=== PATIENT | female | born 1975 | race Caucasian/White ===

== ENCOUNTER 2021-05-01 12:18 | Day surgery (SDC) | payer OTHER, SELFPAY ==
--- NOTE | 2021-04-25 12:28 | PCM.HP.BLA ---
History and Physical Date of Admission: 05/01/21 HPI: The patient is a 45 year old female presenting for pre-operative visit. She is scheduled for hysteroscopy with endometrial ablation, for dysmenorrhea and menorrhagia on 05/01/2021. Procedure discussed along with risks, benefits and complications. Other alternatives discussed for management. Consent form signed? Yes. ? ? PAST MEDICAL HISTORY PAST MEDICAL HISTORY Diagnosis Date ? NEGATIVE MEDICAL HISTORY ? ? ? PAST SURGICAL HISTORY PAST SURGICAL HISTORY Procedure Laterality Date ? DELIVERY ONLY ? 09/11/1998 ? TUBAL LIGATION HX Bilateral 09/20/2000 ? -DELIV & POST CARE ? 09/20/2000 ? ? ? CURRENT MEDICATIONS Current Outpatient Medications Medication Sig Dispense Refill ? norethindrone (AYGESTIN) 5 mg tablet Take 1 tablet by mouth twice daily. 60 tablet 1 ? No current facility-administered medications for this visit. ? ? ALLERGIES: Patient has no known allergies. ? PERSONAL HISTORY: SOCIAL HISTORY Social History ? Tobacco Use ? Smoking status: Current Every Day Smoker ? Smokeless tobacco: Never Used Substance Use Topics ? Alcohol use: Yes ? ? Comment: occasionally ? Drug use: No ? FAMILY HISTORY: FAMILY HISTORY FAMILY HISTORY Problem Relation Age of Onset ? other (renal failure) Father ? ? Hypertension Maternal Grandfather ? ? Diabetes Paternal Grandmother ? ? ? REVIEW OF SYMPTOMS: GENERAL: denies fevers or chills ENDOCRINOLOGY: has not been on steroids Cardiology : denies palpitations or chest pain Respiratory: denies SOB or cough Hematology: denies history of prolonged bleeding or easy bruising or VTE Allergy: Denies history of personal or family history of allergy to anesthesia ? PHYSICAL EXAMINATION: ? VITALS: Last menstrual period 02/12/2021. ? GENERAL: The patient is well nourished, well hydrated in no acute distress. , The patient is oriented to time, place, and person. NECK: Supple. No lynphadenopathy, normal thyroid, no thyromegaly. LUNGS: Clear to auscultation bilaterally. no wheezes, rhonchi or rales HEART: Regular rate and rhythm, Normal heart sounds and No murmurs or gallops ? IMPRESSION: menorrhagia, dysmenorrhea ? PLAN: The risks/benefits/alternatives and personal involved for the planned hysteroscopy with endometrial ablation were reviewed with the patient. Her questions were answered to her satisfaction and she desires to proceed. Consent was signed. I reviewed with her postop instructions and expectations. ? ? I have reviewed and updated past medical and surgical history, medications and allergies This H&P was completed in my office on 04/24/21 Assessment & Plan Assessment/Plan (1) Menorrhagia: (2) Dysmenorrhea:
[2021-05-01] VITALS (8 sets, daily range): BP systolic 121–147; BP diastolic 62–91; PULSE 59–72; RESP 16–60; TEMP 36–37; O2SAT 97–100; BMI 43.4
[2021-05-01] MEDS: Acetaminophen 500 MG Tablet 1000 MG PO (13:03)
[2021-05-01] MEDS: Lactated Ringers 1,000 ML 100 ML IV (13:03)
[2021-05-01] MEDS: Celecoxib 200 MG Capsule 400 MG PO (13:03)
[2021-05-01 13:16] LABS: Internal QC Validated? YES +Cl - CLEAR BKGD; Pregnancy, Urine Negative Negative
--- NOTE | 2021-05-01 13:55 | EMB_PTH ---
PATIENT: CHARLEE HARRELL LOC: [facility] – [place] U#:[id number] AGE/SX: 45/F ROOM: RE05/01/[address]: Dr. Claudia Mitchell MD : 1975 BED: DIS: 05/01/2021 SPEC #: [id number] RECD: 05/01/21 15:30 STATUS: REY KRISTIE #: [id number] HARSH: 05/01/21 13:[address]: Claudia Mitchell DEPT: SURGICAL PATHOLOGY RECD BY: Marcelina King ENTERED: 05/02/21 12:00 SP TYPE: ENDOM BX/C MUSHTAQ DR: No Primary Care Phys Tissues: Endometrium, NOS Procedures: Surgery Specimen Level IV HEADER OPERATION: Hysteroscopy, D & C, endometrial ablation PRE-OP DIAGNOSIS: Menorrhagia, dysmenorrhea TISSUE SUBMITTED: Endometrial curettings MICROSCOPIC DIAGNOSIS Endometrium, curettings: Secretory endometrium. Benign stromal hyperplasia suggestive of exogenous hormonal effect. Rare strips of benign squamous mucosa. AM:olga lidia 05/05/2021 MICROSCOPIC DESCRIPTION Slides are reviewed. GROSS DESCRIPTION Received in fixative is one container labeled with the patient's name and designated endometrial curettings. The specimen consists of multiple fragments of hemorrhagic mucoid tissue mixed with quintero-pink polypoid tissue that in aggregate measure 5 x 3 x 0.3 cm. Multiple fragments of quintero polypoid tissue are also noted measuring in aggregate 2 x 2 x 0.3 cm. The entire specimen is submitted in three cassettes. Cassette 3 contains the polypoid tissue. / TU:olga lidia 05/02/21 TC:5 CPT: 28262
--- NOTE | 2021-05-01 13:55 | PCM.DC ---
Discharge Instructions Diet Discharge Diet: No restrictions Activity May resume sexual activity in: 2 weeks Lifting Restrictions: none Dressing / Incision Call your doctor if your incision/area has: Sudden Increased Bleeding and Foul Smelling Discharge Call your doctor if you observe: Fever of 101 or Higher and Using more than 1 pad per hour (for 2 hrs in a row) Follow Up Care Please Follow Up With: Claudia Mitchell MD When: 2-4 weeks or as needed. Call [phone] to make an appointment or with any concerns. Test Results: Test results from this visit will be discussed in further detail at your follow-up appointment, if applicable. Discharge Plan Admission Primary Reason for Your Visit: Endometrial ablation Attending Provider: Claudia Mitchell Primary Care Provider: Care Physician,Amaris Primary Discharge Orders/Prescriptions Prescriptions: No Action multivitamin Tablet 1 tab PO DAILY RF: 0 norethindrone acetate 5 mg tablet 5 mg PO BID RF: 0 turmeric root-sofia root ext 150-25 mg Tablet,Chewable 1 tab PO DAILY RF: 0 Elderberry Zinc Vit C 90-15 mg Lozenge 1 lucrecia PO DAILY RF: 0 Referrals / Follow Up: Care Physician,No Primary [Primary Care Provider] - Disposition Disposition (needs filled in before D/C Order can be placed): Home, Self Care
[2021-05-01] MEDS: Lidocaine 1% /Epi 1:100 (20ml) 20 ML Vial (14:04)
--- NOTE | 2021-05-01 14:19 | PCM.OPRPT ---
Problems Associated Problem List Diagnoses (1) Dysmenorrhea: (2) Menorrhagia: Report of Operation Date of Procedure: 05/01/21 Pre-Operative Diagnosis: menorrhagia, dysmenorrhea Post-Operative Diagnosis: same Surgery/Procedure Performed:: Hysteroscopy D&C with endometrial ablation Description of Surgical Findings:: lush endometrium with polypoid appearing lesion on the anterior lower uterine segment, normal cervix and vagina Surgeon: Claudia Mitchell perfume and toilet water maker: None Type of Anesthesia: MAC/Supplemental/Local Anesthesiologist: Kyree Moore Special Medications: none Specimen's removed: endometrial curettings Drains: none Estimated Blood Loss (mL): 10 Fluids Replaced: 500 Description of Procedure: The patient was taken to the OR where she was prepped and draped in dorsal lithotomy position. The weighted speculum was placed in the vagina and the anterior lip of the cervix was grasped with a single-tooth tenaculum. A paracervical block was administered with 1% lidocaine with 1-100,000 epinephrine solution. The cervix was dilated serially with Hegar dilators. The 5mm hysteroscope was placed into the uterine cavity and the above findings were noted. Bilateral tubal ostia were identified. The uterus sounded to 9 cm and the cervical length was 4 cm. The endometrial cavity length was 5 cm. The hysteroscope was removed. A gentle sharp curettage was done of the uterine cavity. The specimen was handed off and sent to pathology. The Fedeirca device was set to 5 cm. The instrument was then seated into the endometrial cavity and the indicator was in the green. The cervical seal balloon was inflated and the uterine integrity test was passed. The ablation procedure was initiated and completed without interruption. During the ablation procedure gentle traction was held on the tenaculum and the Federica device was held up against the uterine fundus. When the ablation procedure was completed the Federica was removed. The tenaculum was removed and the tenaculum site was noted to be hemostatic. All sponge and needle counts were correct. A vaginal sweep was performed by me. The patient was awakened and taken to the recovery room in stable condition. Hysteroscopic ins: 200cc normal saline Hysteroscopic outs:100cc Grafts/Implants Used: non Procedure Start Time: 14:04 Procedure Stop Time: 14:07 Complications none Admit VTE Documentation VTE Present on Admission: No VTE Mechan Device Prophylaxis: SCD's VTE Pharm Prophylaxis ordered?: No Reason prophylaxis not ordered:: Procedure Not Indicated
== END 2021-05-01 15:24 | disposition home or self-care (01) ==
LOC: SDC 12:19 → AC 12:23
PROVIDERS: Referring Provider Obstetrics & Gynecology; Visit Provider Obstetrics & Gynecology
PROC: 0U5B8ZZ Destruction of Endometrium, Via Natural or Artificial Opening Endoscopic (ICD-10-PCS; CPT 58558; principal; 2021-05-01 13:40)
DX: N92.0 Excessive and frequent menstruation with regular cycle (principal); N94.6 Dysmenorrhea, unspecified; F17.200 Nicotine dependence, unspecified, uncomplicated
CPT/HCPCS: 00952; 58563; 81025; 87426; 88305; C9803; J7120; J2405

== ENCOUNTER 2023-09-24 10:15 | Emergency (ER) | payer OTHER, SELFPAY ==
[2023-09-24 10:18] VITALS: BP 186/92; PULSE 114; RESP 22; TEMP 36.7; O2SAT 100; BMI 41.1
[2023-09-24 10:57] LABS: Absolute Lymphocyte Count 1.56 X10^3/uL (0.83-4.51); Absolute Neutrophil Count 10.5 X10^3/uL (2.0-7.7); Basophil# 0.03 X10^3/uL; Basophil% 0.2 % (0-1); Eosinophil# 0.02 X10^3/uL; Eosinophils% 0.2 % (0-5); Hemoglobin 14.1 g/dL (12.0-15.0); Lymphocyte # 1.56 X10^3/ul (0.83-4.51); Lymphocyte % 12.3 % (19-41); Mean Corp Hgb Conc 34.4 g/dL (32-36); Mean Corpuscular Hgb 32.1 pg (27.0-32.0); Mean Corpuscular Volume 93.4 fL (81-99); Mean Platelet Vol. 9.5 fl (6.2-12.0); Monocyte# 0.55 X10^3/uL; Monocyte% 4.3 % (0-10); NRBC Flagged by Analyzer 0 % (0-5); Neutrophil # 10.47 X10^3/uL (2.7-7.7); Neutrophil % 82.6 % (47-70); Platelet Count 345 K/mm3 (150-450); RBC Distribution Width CV 11.8 % (11.6-14.6); RBC Distribution Width SD 40.3 fl (35.1-43.9); Red Blood Count 4.39 M/mm3 (4.2-5.4); White Blood Count 12.7 K/mm3 (4.4-11.0)
[2023-09-24 11:08] LABS: Anion Gap 6 (5-15); BUN 10 mg/dL (7-18); Calcium,Total 9.5 mg/dL (8.5-10.1); Chloride 110 mmol/L (98-107); Creatinine, Serum 0.71 mg/dL (0.55-1.02); EST Glomerular Filtration Rate 93 mL/min (>60); Est Glom Filt Rate - Afr Amer 112 mL/min (>60); Estimated Creatinine Clearance 108.43 ml/min; Glucose 113 mg/dL (74-106); Sodium Level 139 mmol/L (136-145)
[2023-09-24 11:12] LABS: Internal QC Validated? YES +Cl - CLEAR BKGD; Pregnancy, Serum, hCG Quali. NEGATIVE Negative
--- NOTE | 2023-09-24 11:14 | EDS_ITS ---
HPI <ALFREDO Dubose - Last Filed: 09/24/23 14:47> History of Present Illness Chief Complaint: Suicidal Narrative Narrative: 48-year-old female has had increasing depression and suicidal thoughts. She has not been on medication or seen a psychiatrist in years. She currently has a rope in her garage with plan to use it and hang herself. Today she reached out to a coworker for help who brought her in for evaluation. She takes no medications. PFSH <ALFREDO Dubose - Last Filed: 09/24/23 14:47> PFS Medical History Alcohol use Dysmenorrhea Menorrhagia Smoker Home Medications NK 09/24/23 [History Last Taken Unknown] Allergy/AdvReac Type Severity Reaction Status Date / Time No Known Allergies Allergy Verified 09/24/23 10:16 Surgical History (Updated 04/25/21 @ 10:15 by Lashell Mcgee) History of History of foot surgery History of tubal ligation Social History Smoking Status: Current every day smoker tobacco type: cigarettes ROS <ALFREDO Dubose - Last Filed: 09/24/23 14:47> ROS ED ROS Narrative Constitutional: Negative for fever, chills, malaise. CVS: Negative for chest pain. Respiratory: Negative for shortness of breath. GI: Negative for abdominal pain, nausea, vomiting. EXAM <ALFREDO Dubose - Last Filed: 09/24/23 14:47> Physical Exam Narrative Exam Narrative: CONST: Patient sitting in no acute distress. NECK: Normal inspection. RESP: No respiratory distress, CTAB. CVS: Regular rate and rhythm, no murmur, no gallop. SKIN: Color normal, no rash, warm, dry, intact. EXTREMITIES: Normal appearance, no pedal edema. NEURO: Oriented x4. PSYCH: Normal affect. Const Vital Signs: 09/24/23 10:18 09/24/23 18:29 09/24/23 21:06 Temperature 98.1 F Temperature Source Temporal Pulse Rate 114 H 88 62 Respiratory Rate 22 H 16 16 Blood Pressure 186/92 H 135/74 H 136/89 H Blood Pressure Mean 123 94 104 Pulse Ox 100 99 96 Oxygen Delivery Method Room Air Room Air Room Air <Dr. Eric Williamson DO - Last Filed: 09/24/23 22:16> Physical Exam Const Vital Signs: 09/24/23 10:18 09/24/23 18:29 09/24/23 21:06 Temperature 98.1 F Temperature Source Temporal Pulse Rate 114 H 88 62 Respiratory Rate 22 H 16 16 Blood Pressure 186/92 H 135/74 H 136/89 H Blood Pressure Mean 123 94 104 Pulse Ox 100 99 96 Oxygen Delivery Method Room Air Room Air Room Air [facility] <ALFREDO Dubose - Last Filed: 09/24/23 14:47> [facility] Narrative Medical decision making narrative: Patient has depression and suicidal ideation with a plan to hang herself and reached out to a coworker for help and is here for evaluation. She is calm and pleasant during my exam. Occasionally tearful. Blood work and urine was ordered for medical clearance and social work consult placed. Labs show white count of 12.7, otherwise unremarkable. This is nonspecific. UA negative for infection. Urine tox positive for cannabinoids. Alcohol negative. Patient is medically cleared and pink slipped. Construction Rep is in agreement she needs inpatient mental health evaluation. Lab Data Attestation: I reviewed the patient's lab results. Labs: Laboratory Results - last 24 hr 09/24/23 09/24/23 10:45 10:46 WBC 12.7 H RBC 4.39 Hgb 14.1 Hct 41.0 MCV 93.4 MCH 32.1 H MCHC 34.4 RDW Std Deviation 40.3 RDW Coeff of Estiven 11.8 Plt Count 345 MPV 9.5 Immature Gran % (Auto) 0.400 Neut % (Auto) 82.6 H Lymph % (Auto) 12.3 L Stafford % (Auto) 4.3 Eos % (Auto) 0.2 Baso % (Auto) 0.2 Absolute Neuts (auto) 10.5 H Absolute Lymphs (auto) 1.56 Nucleated RBC % 0 Sodium 139 Potassium 4.0 Chloride 110 H Carbon Dioxide 23.0 Anion Gap 6 BUN 10 Creatinine 0.71 Estim Creat Clear Calc 108.43 Est GFR (MDRD) Af Amer 112 Est GFR (MDRD) Non-Af 93 BUN/Creatinine Ratio 14.0 Glucose 113 H Calcium 9.5 Serum , Qual NEGATIVE Urine Color Yellow Urine Clarity Clear Urine pH 6.5 Ur Specific [place] 1.010 Urine Protein Negative Urine Glucose (UA) Normal Urine Ketones Negative Urine Occult Blood 25 H Urine Nitrite Negative Urine Bilirubin Negative Urine Urobilinogen Normal Ur Leukocyte Esterase Negative Urine RBC 0-5 SEEN Urine WBC 0 SEEN Ur Squamous Epith Cells 0-5 SEEN Urine Bacteria 0 SEEN Urine Mucus 0 SEEN Urine Test Cancelled Urine Opiates Screen NEGATIVE Urine Methadone Screen NEGATIVE Ur Barbiturates Screen NEGATIVE Ur Phencyclidine Scrn NEGATIVE Ur Amphetamines Screen NEGATIVE MDMA (Ecstasy) Screen NEGATIVE U Benzodiazepines Scrn NEGATIVE Urine Cocaine Screen NEGATIVE U Cannabinoids Screen POSITIVE H Ur Drug Screen Comment Ethyl Alcohol < 3.0 <Dr. Eric Williamson, DO - Last Filed: 09/24/23 22:16> [facility] Lab Data Labs: Laboratory Results - last 24 hr 09/24/23 09/24/23 10:45 10:46 WBC 12.7 H RBC 4.39 Hgb 14.1 Hct 41.0 MCV 93.4 MCH 32.1 H MCHC 34.4 RDW Std Deviation 40.3 RDW Coeff of Estiven 11.8 Plt Count 345 MPV 9.5 Immature Gran % (Auto) 0.400 Neut % (Auto) 82.6 H Lymph % (Auto) 12.3 L Stafford % (Auto) 4.3 Eos % (Auto) 0.2 Baso % (Auto) 0.2 Absolute Neuts (auto) 10.5 H Absolute Lymphs (auto) 1.56 Nucleated RBC % 0 Sodium 139 Potassium 4.0 Chloride 110 H Carbon Dioxide 23.0 Anion Gap 6 BUN 10 Creatinine 0.71 Estim Creat Clear Calc 108.43 Est GFR (MDRD) Af Amer 112 Est GFR (MDRD) Non-Af 93 BUN/Creatinine Ratio 14.0 Glucose 113 H Calcium 9.5 Serum , Qual NEGATIVE Urine Color Yellow Urine Clarity Clear Urine pH 6.5 Ur Specific [place] 1.010 Urine Protein Negative Urine Glucose (UA) Normal Urine Ketones Negative Urine Occult Blood 25 H Urine Nitrite Negative Urine Bilirubin Negative Urine Urobilinogen Normal Ur Leukocyte Esterase Negative Urine RBC 0-5 SEEN Urine WBC 0 SEEN Ur Squamous Epith Cells 0-5 SEEN Urine Bacteria 0 SEEN Urine Mucus 0 SEEN Urine Test Cancelled Urine Opiates Screen NEGATIVE Urine Methadone Screen NEGATIVE Ur Barbiturates Screen NEGATIVE Ur Phencyclidine Scrn NEGATIVE Ur Amphetamines Screen NEGATIVE MDMA (Ecstasy) Screen NEGATIVE U Benzodiazepines Scrn NEGATIVE Urine Cocaine Screen NEGATIVE U Cannabinoids Screen POSITIVE H Ur Drug Screen Comment Ethyl Alcohol < 3.0 EKG Initial EKG: Attestation: I personally reviewed and interpreted this EKG as follows: Interpretation: Sinus Rhythm (61) and No Acute Injury Pattern Comments: EKG was obtained. On my independent interpretation, it showed a normal sinus rhythm with a rate of 61. DE interval, QRS interval, and QTc intervals were all normal. [place] was normal. There are no acute ST or T wave changes. Prior EKG tracings: not available for review Prior: No Prior Treatment and Re-Evaluation :: I have personally performed a face to face assessment of the patient and have reviewed the SHOLA Note. I performed a substantive portion of the visit including all aspects of the following. My estevez findings include: History: Patient presents with depression and suicidal ideation that has been getting progressively worse over the past several months. Patient states that she has had thoughts of hanging herself. Patient states the thoughts of harming herself or getting worse. Patient does not currently see a psychiatrist or counselor. Patient states she wants help with her depression and anxiety. Exam: Vital signs are stable except for an elevated blood pressure of 186/92. Patient is afebrile. Patient is in no acute distress. Oral mucosa is pink and moist. Neck is supple. Trachea is midline. There is no JVD. Heart was regular rate and rhythm. Lungs are clear and equal bilaterally. Abdomen is soft. Bowel sounds are normal. There is no tenderness. Cranial nerves II through XII are intact. There are no focal motor or sensory deficits noted. Patient does have a depressed mood and flat affect. Patient admits to some suicidal thoughts. Medical Decision Making: Medical screening labs will be obtained. CBC will be obtained to assess for leukocytosis and anemia. Basic metabolic profile will be obtained to assess for electrolyte abnormality and renal function. Serum hCG will be obtained to assess for . Urinalysis will be obtained to assess for urinary tract infection and hematuria. Urine tox screen will be obtained to assess for substance abuse. Serum alcohol level will be obtained to assess for alcohol intoxication. CBC was reviewed. There is a slight leukocytosis of 12.7. The remainder is within normal limits. Basic metabolic profile was reviewed and was within normal limits. Serum hCG was reviewed and was negative. Urine tox screen was reviewed and was positive for cannabinoids. Serum alcohol level was reviewed and was normal. Case will be discussed with the social media marketer for likely placement. Patient understood and was agreeable with the plan. All questions were answered. [place] slip was filled out. social worker health services is attempting to place patient in a psychiatric facility. Patient was accepted to [facility]. Patient will be transferred there. Transfer forms were filled out. Discharge Plan Triage Chief Complaint: Suicidal ED Midlevel Provider: Leatha Barker ED Provider: Eric Williamson Dx/Rx/DC Orders Clinical Impression: Depression with suicidal ideation Prescriptions: No Action NK Primary Care Provider: Care Physician,No Primary Referrals: Care Physician,No Primary [Primary Care Provider] - Disposition Disposition: Psychiatric Hospital or Unit Discharge Location: [facility]
[2023-09-24 11:15] LABS: Alcohol, Blood (Medical)-Serum < 3.0 mg/dL
[2023-09-24 11:17] LABS: Amphetamine Urine VISTA NEGATIVE (<1000 ng/mL); Barbiturate Urine VISTA NEGATIVE (< 200 ng/mL); Benzodiazepine Urine VISTA NEGATIVE (< 200 ng/mL); Cocaine Urine VISTA NEGATIVE (< 300 ng/mL); Ecstacy Urine VISTA NEGATIVE (< 500 ng/mL); Methadone Urine VISTA NEGATIVE (< 300 ng/mL); PCP Urine VISTA NEGATIVE (< 25 ng/mL); THC Urine VISTA POSITIVE (< 50 ng/mL); Vista UDS pH Range 6
[2023-09-24 11:49] LABS: Bacteria 0 SEEN /hpf (None Seen); Mucous, Urine 0 SEEN /hpf (<or=2+); White Blood Cells 0 SEEN /hpf (0-5)
[2023-09-24 12:10] LABS: Glucose, Dipstick Normal (Normal); Ketone-Dipstick Negative (Negative); Leukocyte Esterase-Dipstick Negative /ul (Negative); Nitrite-Dipstick Negative (Negative); Occult Blood-Urine 25 /ul (Negative); Protein-Dipstick Negative (Negative); Urine Bilirubin Dipstick Negative (Negative); Urine Urobilinogen Normal (Normal); Urine pH 6.5 (5.0 - 8.0)
[2023-09-24 12:12] LABS: Color, Urine Yellow (Yellow); Urine Clarity Clear (Clear)
[2023-09-24 12:16] LABS: Red Blood Cells-Urine 0-5 SEEN /hpf (0-5); Squamous Epithelial Cells - UA 0-5 SEEN /hpf (5-10)
--- NOTE | 2023-09-24 17:40 | ED.RN ---
CALLED [facility] FOR AN UPDATE @0602, SPOKE WITH DIYA. SHE STATED SHE WAS STILL WORKING ON ASSESSMENT AND WOULD CALL US WHEN SHE MAKES REFERRALS.
--- NOTE | 2023-09-24 17:44 | ED.RN ---
ANKITA FROM [facility] CALLED, REQUESTED US TO FAX PINK SLIP, COVID TEST, AND EKG IN ORDER TO START REFERRING PT.
--- NOTE | 2023-09-24 17:59 | ED.RN ---
NO OLD EKG
[2023-09-24 18:29] VITALS: BP 135/74; PULSE 88; RESP 16; O2SAT 99
[2023-09-24 21:06] VITALS: BP 136/89; PULSE 62; RESP 16; O2SAT 96
--- NOTE | 2023-09-25 00:14 | NURSING ---
[facility] ETA WAS 2-3 HOURS. I CALLED AT 3 HOURS AND 15 MINUTE JOHNNY AND WAS TOLD IT WOULD BE SEVERAL MORE HOURS DUE TO TRAUMA CALLS THEY HAD RECIEVED.
[2023-09-25 03:00] VITALS: RESP 16
[2023-09-25 04:00] VITALS: RESP 16
[2023-09-25 05:00] VITALS: RESP 16
[2023-09-25 06:00] VITALS: RESP 16
--- NOTE | 2023-09-25 06:33 | ED.RN ---
report called to [facility] at this time.
[2023-09-25 07:00] VITALS: BP 129/87; PULSE 74; RESP 16; O2SAT 97
== END 2023-09-25 07:54 ==
PROVIDERS: Emergency Provider Emergency Medicine; Visit Provider Emergency Medicine
DX: F32.A Depression, unspecified (principal); R45.851 Suicidal ideations; F17.210 Nicotine dependence, cigarettes, uncomplicated
CPT/HCPCS: 36415; 80048; 80307; 80320; 81001; 84703; 85025; 87811; 93005; 99284; G0480